=== PATIENT | male | born 1955 | race Caucasian/White ===

== ENCOUNTER 2020-09-14 12:17 | Outpatient (CLI) | payer OTHER, SELFPAY ==
--- NOTE | ~2020-09-14 | CT_ITS ---
EXAMINATION: CT abdomen pelvis wo con DATE: 09/14/2020 12:38 INDICATION: Left flank pain. TECHNIQUE: Computed tomography (CT) of the abdomen and pelvis was performed without intravenous contr ast. Automated exposure control and iterative reconstruction technique were employed. The dose-length product was 410.53 mGy-cm. COMPARISON: None. FINDINGS: The visualized portions of the lung bases demonstrate mild atelectasis. No pleural effusion . Cardiomegaly is noted. No pericardial effusion. There are coronary artery calcifications. The liver , gallbladder, spleen, pancreas, and adrenal glands are normal. There are cysts in the kidneys measur ing up to 2.8 cm on the right. There is a 9 mm stone in left kidney. There is moderate left hydroneph rosis and hydroureter. There are 2 mm and 4 mm stones in distal left ureter. The prostate is mildly e nlarged. There is a left inguinal hernia containing fat. There are no dilated loops of bowel. The gagan endix is normal. There are no pathologically enlarged lymph nodes. There is no free intraperitoneal f luid. There is thoracolumbar levoscoliosis. There is severe lumbar spondylosis and moderate thoracic spondylosis. IMPRESSION: 1. 4 mm and 2 mm stones in distal left ureter with moderate left hydronephrosis and hydroureter. 2. 9 mm nonobstructing left kidney stone. Reviewed, dictated and finalized at location A.
--- NOTE | ~2020-09-14 | XR_ITS ---
EXAMINATION: XR abdomen/kub 1V DATE: 09/14/2020 12:32 INDICATION: Left ureteral stone. TECHNIQUE: A supine view of the abdomen on 2 radiographs was obtained. COMPARISON: None. FINDINGS: There are no dilated loops of bowel. The kidneys are obscured by bowel. Calcifications in t he pelvis may be phleboliths. IMPRESSION: 1. Calcifications in the pelvis, which may be phleboliths. Reviewed, dictated and finalized at location A.
== END 2020-09-14 12:18 | disposition home or self-care (01) ==
LOC: ANHIMG 12:22
PROVIDERS: Visit Provider Nurse Practitioner Adult Health
DX: N20.2 Calculus of kidney with calculus of ureter (principal)
CPT/HCPCS: 74018; 74176

== ENCOUNTER 2020-09-14 13:35 | Day surgery (SDC) | payer OTHER, SELFPAY ==
[2020-09-14] VITALS (10 sets, daily range): BP systolic 115–160; BP diastolic 64–83; PULSE 51–63; RESP 12–18; TEMP 36.2–36.7; O2SAT 98–100; BMI 28.8
--- NOTE | ~2020-09-14 | XR_ITS ---
Pain management procedure TECHNIQUE: Fluoroscopy used during left ureteral stone performed by [Rodriguez Sosa MD] on 1 . 11 seconds of fluoroscopy with 1 images captured. ] FINDINGS: Correlate with procedure note. No contrast is identified in the bladder, ureters are renal collecting systems. IMPRESSION: Fluoroscopy used during retrograde pyelogram. Reviewed, dictated and finalized at location A.
[2020-09-14] MEDS: LACTATED RINGERS 1,000 ML 30 ML IV CONT (14:15)
[2020-09-14] MEDS: fentaNYL CITRATE INJ (*CRX) 100 MCG/2 ML VIAL 50 MCG IV PUSH (14:27)
[2020-09-14] MEDS: SCOPOLAMINE 1.5 MG PATCH TRANSDERM (14:27)
[2020-09-14] MEDS: ONDANSETRON INJ 4 MG/2 ML VIAL IV PUSH (14:27)
--- NOTE | 2020-09-14 14:27 | WPDANESEPPF ---
Anes - Initial Pre Proc Eval Procedure: Operation Date: 09/14/20 15:00 Proposed Procedures p Cystoscopy, Left Ureteroscopy, Left Retrograde Pyelogram, Left Stone Extraction, Possible Left Stent Placement, - Henry Reeves MD s Possible Holmium Laser Procedure - Henry Reeves MD Date/Time: 09/14/20 14:27 Surgeon: Henry Reeves MD Pre Op Diagnosis: left ureteral calculus Patient Data Age: 65 Gender: M Height: 1.98 m Weight: 113 kg Allergies Allergy/AdvReac Type Severity Reaction Status Date / Time No Known Allergies Allergy Verified 09/14/20 14:24 Patient hx anesthesia problems: none Family hx anesthesia problems: none [facility]LY [facility] Past Medical History Medical History (Updated 09/14/20 @ 14:27 by Neri Baca MD) HTN (hypertension) Overweight (BMI 25.0-29.9) Surgical History Surgical History (Updated 09/14/20 @ 14:36 by Neri Baca MD) H/O arthroscopy of shoulder Hx of cardiac catheterization Anes - Eval Final PreProcedure Day of Procedure 09/14/20 14:27 Patient weight: overweight Heart: regular rate and rhythm Lungs: clear to auscultation and normal air movement Airway: Mallampati scale class II Neurological: alert and oriented Last oral intake: >/= 8 hours ASA classification: II Emergent: no Anesthetic plan: proceed Anesthesia type and monitoring: general LMA Informed Consent: The patient's anesthetic plan and its attendant risks and benefits were discussed with the patient/family/POA. Questions were solicited and answers provided to the satisfaction of the patient/family/POA.
--- NOTE | 2020-09-14 16:41 | P.HP_ITS ---
History of Present Illness History of Present Illness Consent: Risks, benefits, and alternatives have been discussed and questions answered. Patient agrees to proceed with procedure. Chief complaint: left ureteral calculus Narrative: Deepak Li is a 65 year old male without prior history until last week when developed renal colic while golfing in [place]. CT-imaging reveals a 9mm left lower pole stone and two left distal ureteral stones. He has no history of UTI, prior stones or gross hematuria. Review of Systems Cardiovascular: Cardiovascular: Denies chest pain, Denies lightheadedness, Denies palpitations and Denies dyspnea Respiratory: Respiratory: Denies dyspnea Gastrointestinal: Gastrointestinal: Denies diarrhea, Denies nausea and Denies vomiting Genitourinary: Genitourinary: Denies hematuria and Denies dysuria Endocrine: Endocrine: Denies palpitations PMFSH Past Medical History Medical History HTN (hypertension) Overweight (BMI 25.0-29.9) Surgical History Surgical History H/O arthroscopy of shoulder Hx of cardiac catheterization Meds Home Medications and Allergies Home Medications Medication Instructions Recorded Confirmed Type amlodipine 5 mg PO DAILY 09/14/20 09/14/20 History sertraline 100 mg PO DAILY 09/14/20 09/14/20 History Allergies Allergy/AdvReac Type Severity Reaction Status Date / Time No Known Allergies Allergy Verified 09/14/20 15:02 Vital Signs Vital Signs - 24 hr 09/14/20 15:05 Temperature 98.0 F Pulse Rate 63 Respiratory Rate 18 Blood Pressure 150/83 H Pulse Oximetry 98 Exam Const: General: no acute distress Resp: Effort & Inspection: normal respiratory effort GI: Inspection: non-distended GI Palp: No abdominal tenderness and No Guarding due to palpation present (GI) Auscultation: normal bowel sounds Assessment and Plan Assessment and plan (1) Left ureteral stone: Code(s): N20.1 - Calculus of ureter Status: Acute (2) Left renal stone: Code(s): N20.0 - Calculus of kidney Status: Acute Assessment and Plan: * Cystoscopy, left ureteroscopy with stone extraction possible left ureteral stent placement, possible laser lithotripsy.
--- NOTE | 2020-09-14 16:44 | WPDHPUPDATE1 ---
History and Physical Update Update Date/Time: 09/14/20 16:44 History and Physical has been reviewed, including an updated exam of the patient. There are NO changes in the patient's condition. Risks, benefits, and alternatives have been discussed and questions answered. Patient agrees to proceed with procedure.
[2020-09-14] MEDS: ceFAZolin 2 GM/D5W 50 ML 2 GM/50 ML BAG IVPB (16:46)
[2020-09-14] MEDS: LIDOCAINE HCL 2% GEL UROJET 10 ML PKG MUCOUS MEM (17:01)
[2020-09-14] MEDS: KETOROLAC 30 MG/ML VIAL (*BKC) IV PUSH (17:04)
--- NOTE | 2020-09-14 17:16 | PM.PROC ---
Procedure Note - Detailed Date of procedure: 09/14/20 Pre-op diagnosis: left ureteral calculus Post-op diagnosis: same Procedure performed: Cystoscopy, left ureteroscopy with stone extraction Description of procedure: The patient was brought to the operative suite where he is prepped and draped in a routine sterile fashion while in the dorsal lithotomy position after the uneventful induction of a general LMA anesthetic. A 19F rigid cystoscope was placed in the bladder. There are no urethral strictures. His prostatic urethra measures, approximately, 2.0cm with small median lobe enlargement. The bladder mucosa was endoscopically normal without hyperemia or neoplasm. There was a single, orthotopic ureteral orifice bilaterally. A 0.035 glidewire was advanced into the left renal pelvis under fluoroscopy. The distal ureter was dilated with an 8F/10F ureteral dilator. Ureteroscopy was undertaken with a short, tapered, semi-rigid ureteroscope and both stones was extracted with ease using a 1.9F [place] disposable stone basket. Due to the ease of this manipulation I opted not to place a ureteral stent. The patient's bladder was emptied and was taken to the recovery room having tolerated this procedure well. Anesthesia: GLMA Surgeon: Rodriguez Sosa MD Drains: No Packing: No Pathology: yes (Left ureteral stones) Complications: No immediate complications Condition: stable Disposition: PACU
== END 2020-09-14 18:51 | disposition home or self-care (01) ==
PROVIDERS: Urology; PCP Family Medicine; Visit Provider Urology
PROC: (CPT 52352; principal; 2020-09-14 15:00)
DX: N20.1 Calculus of ureter (principal); I10 Essential (primary) hypertension
CPT/HCPCS: 52352; 74018; 74176; 82365; 88300; A9270; C1769; J0690; J1100; J1885; J2250; J2405; J2704; J3010; J7120; Q9966

== ENCOUNTER 2020-09-18 12:06 | Outpatient (CLI) | payer OTHER, SELFPAY ==
--- NOTE | ~2020-09-18 | XR_ITS ---
EXAMINATION: XR abdomen/kub 1V DATE: 09/18/2020 12:33 INDICATION: Left ureteral stone TECHNIQUE: A supine view of the abdomen on 2 radiographs was obtained. COMPARISON: CT and KUB dated 09/14/2020 FINDINGS: There is a 4 mm calcific density projecting over the lower pole of the left kidney. Upon review of pr ior CT this appears to represent a central dense nidus within a larger less dense 11 mm stone in a lo wer pole calyx of the left kidney. Unchanged pattern of phleboliths in the pelvis. The previously see n subtle stone at the distalmost left ureter is no longer visualized and has reportedly been extracte d. There are few scattered tiny foci of dense material within the fecal stream of the colon. Normal b owel gas pattern. Mild lumbar levoscoliosis. IMPRESSION: 1. Unchanged 11 mm stone at the lower pole of the left kidney the most extensive 4 mm central region visible on the plain radiographs. 2. No evident residual stones in the distalmost left ureter. Reviewed, dictated and finalized at location B. IMPRESSION: 1. Unchanged 11 mm stone at the lower pole of the left kidney the most extensiv e 4 mm central region visible on the plain radiographs. 2. No evident residual stones in the distalmost left ureter.
== END 2020-09-18 12:07 | disposition home or self-care (01) ==
PROVIDERS: Visit Provider Nurse Practitioner Adult Health
DX: N20.1 Calculus of ureter (principal)
CPT/HCPCS: 74018

== ENCOUNTER 2021-03-05 07:28 | Outpatient (CLI) | payer OTHER, SELFPAY ==
--- NOTE | ~2021-03-05 | CT_ITS ---
EXAMINATION: CT abdomen pelvis wo con DATE: 03/05/2021 07:59 INDICATION: Left flank pain TECHNIQUE: Computed tomography (CT) of the abdomen and pelvis was performed without intravenous contr ast. The dose-length product (DLP) was 429.69 mGy-cm. Automated exposure control and iterative recons truction technique were employed. COMPARISON: 09/14/2020 FINDINGS: The lung bases are clear. Cardiomegaly is noted. The liver, spleen, pancreas, gallbladder, and adrenal glands are normal. There is a 12 mm nonobstructing stone in the left kidney lower pole. N o stones are present in the right kidney, ureters, or the bladder. There is no hydronephrosis or hydr oureter. Cysts of the kidneys measure up to 2.7 cm on the right. There are peripelvic cysts of the ki dneys. No pathologically enlarged abdominal or pelvic lymph nodes are identified. There is calcified atherosclerosis of the aorta and many of the other arteries. There is no free intraperitoneal gas or evidence of bowel obstruction. A large volume of colonic stool is present. There is severe lumbar spo ndylosis. IMPRESSION: 1. 12 mm nonobstructing left kidney stone. Reviewed, dictated and finalized at location B.
--- NOTE | ~2021-03-05 | XR_ITS ---
EXAMINATION: XR abdomen/kub 1V INDICATION: Calcium kidney stone, left flank pain TECHNIQUE: Supine views of the abdomen were obtained on 2 radiographs. COMPARISON: CT from today and KUB dated 09/18/2020 FINDINGS: There is an 11 mm calcification projecting in the expected location of the left kidney lowe r pole between the left L1 and L2 transverse processes. There is a large volume of colonic stool. The bowel gas pattern is normal. Severe lumbar spondylosis is noted. There is a phlebolith of the left p coral. IMPRESSION: 1. 11 mm calcification projecting at the expected location of the left kidney lower pole. Reviewed, dictated and finalized at location B. IMPRESSION: 1. 11 mm calcification projecting at the expected location of the left kidney l ower pole.
== END 2021-03-05 07:29 | disposition home or self-care (01) ==
PROVIDERS: Visit Provider Urology
DX: N20.0 Calculus of kidney (principal)
CPT/HCPCS: 74018; 74176

== ENCOUNTER 2021-03-13 08:07 | Outpatient (CLI) | payer OTHER, SELFPAY ==
--- NOTE | 2021-03-13 | ECG_ITS ---
Measurements Intervals [place] Rate: 56 P: -8 AL: 199 QRS: 61 QRSD: 97 T: 64 QT: 441 QTc: 429 Interpretive Statements SINUS BRADYCARDIA VOLTAGE CRITERIA FOR LVH BASELINE ARTIFACT- II, III, AVL, AVR, AVL, AVF BORDERLINE ECG Electronically Signed On 03-13-2021 12:02:21 CDT by Marlo Drew D.O.
[2021-03-13 08:42] LABS: INR 0.9; Prothrombin Time 12.6 Seconds (11.1-14.7)
[2021-03-13 08:43] LABS: Partial Thromboplastin Time 27.8 SECONDS (22.3-36.8)
== END 2021-03-13 08:08 | disposition home or self-care (01) ==
PROVIDERS: Referring Provider Anesthesiology; Visit Provider Urology
DX: N20.0 Calculus of kidney (principal); Z01.818 Encounter for other preprocedural examination; R94.31 Abnormal electrocardiogram [ECG] [EKG]
CPT/HCPCS: 36415; 85610; 85730; 87086; 87088; 93005

== ENCOUNTER → 2021-03-16 09:11 | Outpatient (CLI) | payer OTHER, SELFPAY ==
[2021-03-16 20:46] LABS: SARS-CoV-2 RNA PCR Negative
== END ==
PROVIDERS: Visit Provider Urology
DX: Z01.812 Encounter for preprocedural laboratory examination (principal); Z20.822 Contact with and (suspected) exposure to COVID-19
CPT/HCPCS: C9803; U0003; U0005

== ENCOUNTER 2021-03-19 01:42 | Day surgery (SDC) | payer OTHER, SELFPAY ==
[2021-03-12 11:17] VITALS: BMI 28.5
--- NOTE | 2021-03-18 14:52 | P.PNAN_ITS ---
Anes - Initial Pre Proc Eval Procedure: Operation Date: 03/19/21 07:30 Proposed Procedures p Left Renal Extracorporeal Shock Wave Lithotripsy - Ben Rizvi MD Date/Time: 03/18/21 14:52 Surgeon: Ben Rizvi MD Pre Op Diagnosis: left renal stone Patient Data Age: 65 Gender: M Height: 1.98 m Weight: 112.05 kg Allergies Allergy/AdvReac Type Severity Reaction Status Date / Time No Known Allergies Allergy Verified 03/12/21 10:59 Home Medications Medication Instructions Recorded Confirmed Type amlodipine 5 mg PO DAILY 09/14/20 03/19/21 History sertraline 100 mg PO DAILY 09/14/20 03/19/21 History Patient hx anesthesia problems: none Family hx anesthesia problems: none [facility] Past Medical History Medical History HTN (hypertension) Overweight (BMI 25.0-29.9) Surgical History Surgical History H/O arthroscopy of shoulder Hx of cardiac catheterization Social History Social History Smoking status: Never smoker Living arrangements: with family Spiritual care concerns: No Anes - Eval Final PreProcedure Day of Procedure 03/18/21 14:52 Patient weight: overweight Heart: regular rate and rhythm Lungs: clear to auscultation and normal air movement Airway: Mallampati scale class II Neurological: alert and oriented Last oral intake: >/= 8 hours ASA classification: II Emergent: no Anesthetic plan: proceed Anesthesia type and monitoring: general LMA Informed Consent: The patient's anesthetic plan and its attendant risks and benefits were discussed with the patient/family/POA. Questions were solicited and answers provided to the satisfaction of the patient/family/POA.
[2021-03-19] VITALS (7 sets, daily range): BP systolic 105–153; BP diastolic 67–95; PULSE 55–63; RESP 10–20; TEMP 35.9–36.2; O2SAT 96–100
--- NOTE | ~2021-03-19 | XR_ITS ---
EXAMINATION: XR abdomen/kub 1V DATE: 03/19/2021 06:48 INDICATION: Kidney stone. TECHNIQUE: A supine view of the abdomen on 2 radiographs was obtained. COMPARISON: CT abdomen and pelvis 03/05/2021 FINDINGS: There are phleboliths in the pelvis. There are no dilated loops of bowel. The kidneys are o bscured by bowel. There is a 10 mm stone in left kidney. IMPRESSION: 1. 10 mm stone in left kidney. Reviewed, dictated and finalized at location A.
--- NOTE | 2021-03-19 07:25 | WPDHPUPDATE1 ---
History and Physical Update Update Date/Time: 03/19/21 07:25 History and Physical has been reviewed, including an updated exam of the patient. There are NO changes in the patient's condition. Risks, benefits, and alternatives have been discussed and questions answered. Patient agrees to proceed with procedure. Proceed with eswl of left renal calculus
[2021-03-19] MEDS: LACTATED RINGERS 1,000 ML 30 ML IV CONT (07:45)
[2021-03-19] MEDS: ceFAZolin 2 GM/D5W 50 ML 2 GM/50 ML BAG IVPB (08:18)
--- NOTE | 2021-03-19 08:57 | PM.PROC ---
Procedure Note - Detailed Date of procedure: 03/19/21 Pre-op diagnosis: left renal stone Post-op diagnosis: same Procedure performed: ESWL of left renal calculus Description of procedure: Patient is taken the operative suite and correctly identified. Once anesthesia was obtained the stone was localized in both planes. Two thousand five hundred shocks given the stone. Patient tolerated procedure well without any complications is taken recovery stable condition. Follow-up in about 10 days with KUB. Anesthesia: GLMA Surgeon: Ben Rizvi MD Drains: No Packing: No Pathology: none sent Complications: No immediate complications Condition: stable Disposition: PACU
[2021-03-19] MEDS: fentaNYL CITRATE INJ (*CRX) 100 MCG/2 ML VIAL 25 MCG IV PUSH ×2 (09:42→09:45)
== END 2021-03-19 10:46 | disposition home or self-care (01) ==
PROVIDERS: Visit Provider Urology
PROC: (CPT 50590; principal; 2021-03-19 07:30)
DX: N20.0 Calculus of kidney (principal); I10 Essential (primary) hypertension; R11.2 Nausea with vomiting, unspecified; R10.9 Unspecified abdominal pain
CPT/HCPCS: 50590; 36415; 74018; 85610; 85730; 87086; 87088; 93005; C9803; J0690; J1100; J2250; J2405; J2704; J3010; J7120; U0003; U0005

== ENCOUNTER 2021-04-01 10:49 | Outpatient (CLI) | payer OTHER, SELFPAY ==
--- NOTE | ~2021-04-01 | XR_ITS ---
EXAMINATION: XR abdomen/kub 1V EXAM DATE: 04/01/2021 11:04 INDICATION: Left ureteral stone. TECHNIQUE: Frontal projection(s) of the abdomen for interpretation. Comparison is made to prior exami nation from 03/19/2021. FINDINGS: Difficult to identify the previously seen 10 mm left calyceal stone. Couple of pelvic phle boliths are present. Mild to moderate lumbar levoscoliosis and moderate spondylosis. Moderate amount colonic stool. Lung bases unremarkable. IMPRESSION: Difficult to identify left nephrolithiasis. Reviewed, dictated and finalized at location A.
== END 2021-04-01 10:50 | disposition home or self-care (01) ==
LOC: ANHIMG 10:53
PROVIDERS: Visit Provider Nurse Practitioner Adult Health
DX: N20.1 Calculus of ureter (principal); M47.816 Spondylosis without myelopathy or radiculopathy, lumbar region
CPT/HCPCS: 74018

== ENCOUNTER 2021-04-15 13:47 | Outpatient (CLI) | payer OTHER, SELFPAY ==
--- NOTE | ~2021-04-15 | XR_ITS ---
XR abdomen/kub 1V 04/15/2021 13:58 INDICATION: Renal stones TECHNIQUE: KUB COMPARISON: 04/01/2021 FINDINGS: Bowel gas pattern is normal. There is no evidence of free air, mass, organomegaly, ascites or obstruction. No abnormal calculi are seen, although the kidneys are obscured by overlying bowel content. The bones appear intact. IMPRESSION: 1: No acute abdominal abnormality identified. Reviewed, dictated and finalized at location A.
== END 2021-04-15 13:48 | disposition home or self-care (01) ==
LOC: ANHIMG 13:51
PROVIDERS: Visit Provider Urology
DX: N20.0 Calculus of kidney (principal)
CPT/HCPCS: 74018

== ENCOUNTER → 2022-11-29 09:51 | Outpatient (CLI) | payer MEDICARE, SELFPAY ==
--- NOTE | ~2022-11-29 | XR_ITS ---
EXAMINATION: XR abdomen/kub 1V INDICATION: Left flank pain TECHNIQUE: Supine views of the abdomen were obtained on 2 radiographs. COMPARISON: CT from today FINDINGS: The known proximal left ureteral stone is not well demonstrated. On the comparison CT, the stone projects at the level of the left L3 transverse process. There is severe lumbar spondylosis. A large volume of colonic stool is present. The visualized lung bases are clear. Phleboliths are noted in the pelvis. IMPRESSION: 1. Known proximal left ureteral stone not definitely identified. Reviewed, dictated and finalized at location L. LLERY DESIGNER
--- NOTE | ~2022-11-29 | CT_ITS ---
EXAMINATION: CT abdomen pelvis wo con DATE: 11/29/2022 10:15 INDICATION: Calculus of kidney TECHNIQUE: Computed tomography (CT) of the abdomen and pelvis was performed without intravenous contr ast. The dose-length product (DLP) was 787.54 mGy-cm. Automated exposure control and iterative recons truction technique were employed. COMPARISON: 03/05/2021 FINDINGS: A stable 4 mm nodule of the right middle lobe and a stable 2 mm nodule of the left lower lo be are consistent with old granulomatous disease. The heart size is normal. The liver, spleen, pancre as, gallbladder, and adrenal glands are normal. There is a 5 mm stone of the proximal left ureter cau sing moderate hydronephrosis. Cysts of the kidneys measure up to 2.7 cm on the right. No pathological ly enlarged abdominal or pelvic lymph nodes are identified. There is no free intraperitoneal gas or e vidence of bowel obstruction. The appendix is normal. There is severe lumbar spondylosis. IMPRESSION: 1. 5 mm stone of the proximal left ureter causing moderate hydronephrosis. Reviewed, dictated and finalized at location L. STRIAL LOCOMOTIVE OPERATOR
== END ==
PROVIDERS: PCP Urology; Visit Provider Urology
DX: N20.2 Calculus of kidney with calculus of ureter (principal)
CPT/HCPCS: 74018; 74176

== ENCOUNTER 2022-11-29 12:42 | Day surgery (SDC) | payer MEDICARE, SELFPAY ==
--- NOTE | ~2022-11-29 | XR_ITS ---
EXAMINATION: XR retrograde pyelo w/stent LT DATE: 11/29/2022 17:50 ASSOCIATE SALES REPRESENTATIVE INDICATION: LEFT SIDE SPECIAL . TECHNIQUE: 8 fluoroscopic images of the left abdomen and pelvis were obtained during retrograde pyelo graphy with stent placement performed by the surgeon. I was not present in the operating room. Fluoro scopy exposure time was 24.1 seconds. DAP [id number] mGym2. COMPARISON: CT and x-ray abdomen, same date FINDINGS: Wire access accomplished to the upper collecting system. Mild left pelvicaliectasis. A hyperdensity i n the renal pelvis may represent the previously detected obstructing stone. The distal stent coil pro jects over the bladder. IMPRESSION: Fluoroscopic documentation of left retrograde pyelography with stent placement. Please refer to the o perative note for complete procedural details . Reviewed, dictated and finalized at location K. CIATE SALES REPRESENTATIVE IMPRESSION: Fluoroscopic documentation of left retrograde pyelography with stent placement. Please refer to the operative note for complete procedural details .
[2022-11-29 13:05] VITALS: BP 166/94; PULSE 62; RESP 20; TEMP 37.3; O2SAT 98
[2022-11-29 13:11] VITALS: BMI 28.8
[2022-11-29] MEDS: LACTATED RINGERS 1,000 ML 30 ML IV CONT (13:20)
[2022-11-29] MEDS: ONDANSETRON INJ 4 MG/2 ML VIAL IV PUSH (13:30)
[2022-11-29] MEDS: HYDROmorphone HCL INJ (*CRX) 1 MG/ML SYR 0.5 MG IV PUSH ×2 (13:31→15:33)
[2022-11-29] MEDS: FAMOTIDINE 20 MG/2 ML VIAL IV PUSH (13:32)
--- NOTE | 2022-11-29 15:37 | SUR.PREOP ---
1330-PT AWARE SURGEON IS DELAYED UNKNOWN AMOUNT OF TIME. 1430-PT IS UPDATING HIMSELF RE: DELAYS. 1530-REPORT GIVEN TO Lauren KILGORE RN AND PT WILL BE MOVED TO OP AREA FOR HOLDING. PT. CONTINUES TO UPDATE HIMSELF.
--- NOTE | 2022-11-29 16:56 | WPDANESEPPF ---
Anes - Initial Pre Proc Eval Procedure: Operation Date: 11/29/22 15:30 Proposed Procedures p Cystoscopy, Left Ureteroscopy, Left Stone Extraction, Left Stent Placement, Left Retrograde Pyelogram, Left Holmium Laser - Ben Rizvi MD Date/Time: 11/29/22 16:56 Surgeon: Ben Rizvi MD Pre Op Diagnosis: Lt Kidney Stone Patient Data Age: 67 Gender: M Height: 1.98 m Weight: 113.4 kg Last Vital Signs Temp 37.3 C 11/29/22 13:05 Pulse 62 11/29/22 13:05 Resp 20 11/29/22 13:05 BP 166/94 H 11/29/22 13:05 Pulse Ox 98 11/29/22 13:05 O2 Del Method Room Air 11/29/22 13:05 Allergies Allergy/AdvReac Type Severity Reaction Status Date / Time No Known Allergies Allergy Verified 11/29/22 13:09 Home Medications Medication Instructions Recorded Confirmed Type sertraline 100 mg tablet 100 mg PO DAILY 09/14/20 11/29/22 History Patient hx anesthesia problems: none Family hx anesthesia problems: none Results Review: All pre-operative results and documents have been reviewed as part of the pre-operative evaluation. FORMERLY [facility] Past Medical History Medical History HTN (hypertension) Overweight (BMI 25.0-29.9) Surgical History Surgical History H/O arthroscopy of shoulder Hx of cardiac catheterization Social History Social History Smoking status: Never smoker Spiritual care concerns: No Anes - Eval Final PreProcedure Day of Procedure 11/29/22 16:56 Patient weight: overweight Heart: regular rate and rhythm Lungs: clear to auscultation and normal air movement Airway: Mallampati scale class II Neurological: alert and oriented Last oral intake: >/= 8 hours ASA classification: II Emergent: no Anesthetic plan: proceed Anesthesia type and monitoring: general LMA Results Review: All pre-operative results and documents have been reviewed as part of the pre-operative evaluation. Informed Consent: The patient's anesthetic plan and its attendant risks and benefits were discussed with the patient/family/POA. Questions were solicited and answers provided to the satisfaction of the patient/family/POA.
--- NOTE | 2022-11-29 17:03 | PM.IMHP ---
H&P: HPI History of Present Illness Date/Time: 11/29/22 17:03 Chief Complaint: Obstructing 5 mm left proximal ureteral calculus Narrative: 67-year-old male who presented with left flank pain as an outpatient. CT scan revealed an obstructing 5 mm left proximal ureteral stone. Patient is now proceeding for cysto possible left retrograde pyelogram left ureteroscopy with stone extraction holmium laser stent placement Review of Systems Review of Systems: All systems reviewed & are unremarkable except as noted in HPI and below PMFSH Past Medical History Medical History HTN (hypertension) Overweight (BMI 25.0-29.9) Surgical History Surgical History H/O arthroscopy of shoulder Hx of cardiac catheterization Social History Social History Smoking status: Never smoker Spiritual care concerns: No Meds Home Medications and Allergies Home Medications Medication Instructions Recorded Confirmed Type sertraline 100 mg tablet 100 mg PO DAILY 09/14/20 11/29/22 History Allergies Allergy/AdvReac Type Severity Reaction Status Date / Time No Known Allergies Allergy Verified 11/29/22 13:09 Vital Signs Vital Signs - 24 hr 11/29/22 13:05 Temperature 37.3 C Pulse Rate 62 Respiratory Rate 20 Blood Pressure 166/94 H Pulse Oximetry 98 Oxygen Delivery Room Air Exam Const: General: cooperative; No comfortable HENMT: Head: normal to inspection Eyes: General: appearance normal, both eyes and all related structures Chest: Chest palpation & inspection: normal inspection of the chest Resp: Effort & Inspection: normal respiratory effort Cardio: Rate: regular rate Rhythm: regular rhythm GI: Rectal Exam: deferred Assessment and Plan Assessment and plan (1) Left ureteral stone: Code(s): N20.1 - Calculus of ureter Status: Acute Assessment and Plan: Proceed with cystoscopy, left retrograde pyelogram, left ureteroscopy with possible holmium laser, stone extraction, stent placement
--- NOTE | 2022-11-29 17:05 | WPDHPUPDATE1 ---
History and Physical Update Update Date/Time: 11/29/22 17:05 History and Physical has been reviewed, including an updated exam of the patient. There are NO changes in the patient's condition. Risks, benefits, and alternatives have been discussed and questions answered. Patient agrees to proceed with procedure.
[2022-11-29] MEDS: fentaNYL CITRATE INJ (*CRX) 100 MCG/2 ML VIAL 50 MCG IV PUSH (17:14)
[2022-11-29] MEDS: ceFAZolin 2 GM/D5W 50 ML 2 GM/50 ML BAG IVPB (17:45)
[2022-11-29 18:27] LABS: Add Urine Microscopic? YES; Appearance Urine Clear (Clear); Bilirubin Urine Negative (Negative); Blood Urine 3+ (Negative); Color Urine Yellow (Yellow); Glucose Urine UA Negative (Negative); Ketones Urine Negative (Negative); Leukocyte Esterase Ur Negative LEU/UL (Negative); Nitrate Urine Negative (Negative); Protein Urine Negative (Negative); Urobilinogen Urine 0.2 mg/dL (<2.0)
--- NOTE | 2022-11-29 18:30 | SUR.OPER ---
LEFT URETERAL STENT 4.8FR EXP 09-21-25, LOT [id number]
--- NOTE | 2022-11-29 18:37 | P.OP_ITS ---
Procedure Note - Detailed Date of Procedure 11/29/22 Pre-op Diagnosis Lt ureteral Stone Post-op Diagnosis Same Procedure Performed Cystoscopy, left retrograde pyelogram, left ureteroscopy with holmium laser, stone extraction, left ureteral stent placement 4.8 [place] contour Surgeon Ben Rizvi MD Anesthesia General Description of Procedure Patient is taken to the operative suite correctly identified. Once anesthesia was obtained was placed in dorsal lithotomy position and prepped draped usual sterile fashion. Twenty-two [place] scope was inserted the bladder. There were no tumors noted. Left ureteral orifice was cannulated with a guidewire. The stone was impacted in the proximal ureter. We thus had to place a ureteral access sheath in order to get the wire passed in the stent past the stone. With the access sheath we placed a flexible ureteral scope in. Stone was visualized. Using a 273 micron fiber we fragmented stone multiple small pieces. These were retrieved with an escape basket. Some of the fragments were flushed into the kidney and those were also retrieved. A couple additional stones were noted in retrieved from the kidney. Pyelogram was then performed confirm placement of the stent. 4.8 [place] contour stent was then placed with the proximal end coiled in the renal pelvis and the distal in the bladder. Bladder was drained. 2% viscous lidocaine was inserted into the urethra patient is taken recovery stable condition. He will be discharged home and follow up in a week's time for stent removal. Estimated Blood Loss 0 Drains Yes Packing No Pathology Yes Complications No immediate complications Condition Stable Disposition PACU
[2022-11-29] MEDS: LIDOCAINE HCL 2% GEL UROJET 10 ML PKG MUCOUS MEM (18:38)
[2022-11-29 18:41] VITALS: BP 146/99; PULSE 78; RESP 18; TEMP 36.8; O2SAT 100
[2022-11-29 18:45] VITALS: BP 144/88; PULSE 75; RESP 24; O2SAT 100
[2022-11-29 19:00] VITALS: BP 133/59; PULSE 72; RESP 20; O2SAT 98
[2022-11-29 19:01] LABS: RBC Urine 21-50 /hpf (0-2); Squamous Epithelial Cell Urine Rare /hpf (Few); WBC Urine 0-3 /hpf
[2022-11-29 19:04] VITALS: BP 155/89; PULSE 65; RESP 16; O2SAT 100
[2022-11-29 19:20] VITALS: BP 140/79; PULSE 68; RESP 16; O2SAT 100
--- NOTE | 2022-11-29 19:36 | SUR.PHASEII ---
pt woke up in pacu ready to go home. pt vitals and pain controlled, discharged home with his friend alex.
== END 2022-11-29 19:37 | disposition home or self-care (01) ==
PROVIDERS: Visit Provider Urology
PROC: (CPT 52352; principal; 2022-11-29 15:30)
DX: N20.1 Calculus of ureter (principal)
CPT/HCPCS: 52356; 74420; 81001; 82365; 88300; A9270; C1758; C1769; C2617; J0690; J1100; J1170; J2250; J2405; J2704; J3010; J7120